=== PATIENT | female | born 1995 | race African-American/Black ===

== ENCOUNTER 2020-07-28 18:22 | Emergency (ER) | payer SELFPAY ==
[~2020-07-28] VITALS: Ht 157.5 cm; Wt 59.0 kg
== END 2020-07-28 19:04 | disposition home or self-care (01) ==
LOC: FSED 18:46
DX: R10.30 Lower abdominal pain, unspecified (principal); N93.9 Abnormal uterine and vaginal bleeding, unspecified
CPT/HCPCS: 99282